=== PATIENT | female | born 1955 | race African-American/Black ===

== ENCOUNTER 2018-07-20 05:30 | Inpatient (IN) | payer MEDICARE, MEDICAID ==
[~2018-07-20] VITALS: Ht 165.1 cm; Wt 92.1 kg
[2018-07-20 06:58] LABS: BASOPHILS % 1.8 % (0.0-2.0); EOSINOPHILS % 2.3 % (0.0-5.0); HEMOGLOBIN. 9.5 g/dL (12.0-16.0); MEAN CORPUSCULAR HEMOGLOBIN 23.1 pg (28.0-32.0); MEAN CORPUSCULAR VOLUME 72.6 fL (81.0-99.0); MEAN PLATELET VOLUME 9.5 fl (7.4-10.4); MONOCYTES % 8.9 % (2.0-8.0); PLATELET 145 x1000/uL (130-400); RED BLOOD CELL COUNT 4.13 mill/uL (4.2-5.4); RED CELL DISTRIBUTION WIDTH 15.2 % (11.6-14.6)
[2018-07-20 06:58] LABS: CLARITY URINE CLEAR (CLEAR); COLOR URINE YELLOW (YELLOW); KETONES URINE NEGATIVE (NEGATIVE); LEUKOCYTE ESTERASE URINE TRACE (NEGATIVE); NITRITE URINE NEGATIVE (NEGATIVE); OCCULT BLOOD URINE NEGATIVE (NEGATIVE); PROTEIN URINE NEGATIVE (NEGATIVE); SPECIFIC GRAVITY URINE 1.016 (1.005-1.030); UROBILINOGEN URINE 0.2 E.U./dL (0.2-1.0)
[2018-07-20 07:03] LABS: PARTIAL THROMBOPLASTIN TIME 27.3 sec (23.4-31.0)
[2018-07-20 07:06] LABS: CHLORIDE 105 mEq/L (98-107)
[2018-07-20] MEDS ORDERED: NORMAL SALINE 0.9% 10 ML SYR ONE (07:42)
[2018-07-20] MEDS ORDERED: BACITRACIN 50,000 UNITS/VIAL ONE (07:43)
[2018-07-20] MEDS ORDERED: TRANEXAMIC ACID 1,000 MG in SODIUM CHLORIDE 0.9% 100 ML IV SCH (07:45)
[2018-07-20] MEDS ORDERED: BUPIVACAINE HCL/DEXTROSE/PF 0.75% 2ML AMP INJ ONE (07:49)
[2018-07-20] MEDS ORDERED: MORPHINE SULFATE/PF 1MG/ML 10ML AMP ONE (07:49)
[2018-07-20] MEDS ORDERED: FENTANYL CITRATE/PF 50MCG/ML 2ML VIAL ONE (07:52)
[2018-07-20] MEDS ORDERED: ROCURONIUM BROMIDE 10MG/ML VIAL 5ML IV ONE (07:52)
[2018-07-20] MEDS ORDERED: NEOSTIGMINE METHYLSULFATE 1MG/ML 10 ML VIAL ONE (07:53)
[2018-07-20] MEDS ORDERED: MIDAZOLAM HCL 2 MG/2 ML VIAL ONE (07:54)
[2018-07-20] MEDS ORDERED: PROPOFOL 200MG/20ML VIAL IV ONE (08:08)
[2018-07-20] MEDS ORDERED: HYDROMORPHONE HCL/PF 2MG/ML (OR) ONE (08:19)
[2018-07-20] MEDS ORDERED: HYDR25TA PO (08:30)
[2018-07-20] MEDS ORDERED: LABETALOL HCL 5MG/ML VIAL 20ML IV PRN (08:30)
[2018-07-20] MEDS ORDERED: URSO300C4 PO (08:30)
[2018-07-20] MEDS ORDERED: HYDROMORPHONE HCL/PF 2MG/ML CPJ IV PRN (08:30)
[2018-07-20] MEDS ORDERED: ONDANSETRON HCL 4MG/2ML INJ IV PRN ×3 (08:30→14:00)
[2018-07-20] MEDS ORDERED: HYDR-4135 PO (08:30)
[2018-07-20] MEDS ORDERED: ASPI-1159 PO (08:30)
[2018-07-20] MEDS ORDERED: DOCU-272 PO (08:30)
[2018-07-20] MEDS ORDERED: BENA40TA9 PO (08:30)
[2018-07-20] MEDS ORDERED: OXYC-105 PO (08:30)
[2018-07-20] MEDS ORDERED: FERR325T6 PO (08:30)
[2018-07-20] MEDS ORDERED: FERR220S12 PO (08:30)
[2018-07-20] MEDS ORDERED: METHYLENE BLUE 50 MG/10 ML AMP IV ONE (08:31)
[2018-07-20] MEDS ORDERED: EPINEPHRINE 1:1000 1 MG/ML AMP ONE (08:32)
[2018-07-20] MEDS ORDERED: BUPIVACAINE HCL 0.5% (5MG/ML) 50ML ONE (08:32)
[2018-07-20] MEDS ORDERED: GENTAMICIN SULF 40MG/ML 2ML VIAL ONE (09:48)
[2018-07-20] MEDS ORDERED: VANCOMYCIN HCL 500 MG/VIAL ONE (10:49)
[2018-07-20] MEDS ORDERED: TRANEXAMIC ACID 1,000 MG in SODIUM CHLORIDE 0.9% 100 ML IV ONE (11:00)
[2018-07-20] MEDS ORDERED: ZOLPIDEM TARTRATE 5MG TABLET PO PRN (13:00)
[2018-07-20] MEDS ORDERED: MORPHINE SULFATE 4 MG/ML CPJ (NOT FOR IM USE) IV PRN (13:00)
[2018-07-20] MEDS ORDERED: MORPHINE SULFATE 2 MG/ML CPJ (NOT FOR IM USE) IV PRN (13:00)
[2018-07-20] MEDS ORDERED: ACETAMINOPHEN 325MG TABLET PO PRN (13:00)
[2018-07-20] MEDS ORDERED: MAGNESIUM HYDROXIDE 400MG/5ML 30ML UDC PO PRN (13:00)
[2018-07-20] MEDS: MEPERIDINE HCL/PF 25MG/ML CPJ IV PRN ×3 (13:16→16:00)
[2018-07-20] MEDS ORDERED: NALOXONE INJ IV PRN (14:00)
[2018-07-20] MEDS ORDERED: HYDROMORPHONE PCA 10MG/50ML IV PRN (14:00)
[2018-07-20 18:00] VITALS: BP 145/91
[2018-07-20] MEDS ORDERED: CLONIDINE 0.1MG TABLET PO PRN (19:15)
[2018-07-20 20:00] VITALS: BP 174/85
[2018-07-20] MEDS: BENAZEPRIL 10MG TABLET PO SCH (20:12)
[2018-07-20] MEDS: DOCUSATE SODIUM 100MG CAPSULE PO SCH (20:13)
[2018-07-20] MEDS: HYDRALAZINE HCL 50MG TABLET PO SCH (20:13)
[2018-07-20] MEDS: FERROUS SULFATE 325MG TABLET PO SCH (20:13)
[2018-07-20] MEDS: HYDROCODONE/ACETAMINOPHEN 10/325MG TABLET PO PRN (20:13)
[2018-07-20] MEDS: CEFAZOLIN 2,000 MG in DEXT 5% WATER 100 ML IV SCH (21:36)
[2018-07-20] MEDS ORDERED: IBUPROFEN 400MG TABLET PO PRN (22:30)
[2018-07-21] VITALS: BP 131/78
[2018-07-21] MEDS: HYDROCODONE/ACETAMINOPHEN 10/325MG TABLET PO PRN ×5 (02:34→21:32)
[2018-07-21 04:00] VITALS: BP 119/70
[2018-07-21] MEDS: CEFAZOLIN 2,000 MG in DEXT 5% WATER 100 ML IV SCH (05:57)
[2018-07-21 06:58] LABS: BASOPHILS % 0.7 % (0.0-2.0); EOSINOPHILS % 0.3 % (0.0-5.0); HEMOGLOBIN. 8.6 g/dL (12.0-16.0); LYMPHOCYTES % 19.3 % (20.0-50.0); MEAN CORPUSCULAR HEMOGLOBIN 23.5 pg (28.0-32.0); MEAN CORPUSCULAR VOLUME 73.6 fL (81.0-99.0); MEAN PLATELET VOLUME 9.5 fl (7.4-10.4); MONOCYTES % 12.5 % (2.0-8.0); NEUTROPHILS % 67.2 % (40.0-76.0); PLATELET 119 x1000/uL (130-400); RED BLOOD CELL COUNT 3.67 mill/uL (4.2-5.4)
[2018-07-21 07:04] LABS: CHLORIDE 105 mEq/L (98-107)
[2018-07-21 08:00] VITALS: BP 143/88
[2018-07-21] MEDS: BENAZEPRIL 10MG TABLET PO SCH (08:47)
[2018-07-21] MEDS: ENOXAPARIN 30MG/0.3ML SYR SUBCUT SCH ×2 (08:48→17:22)
[2018-07-21] MEDS: DOCUSATE SODIUM 100MG CAPSULE PO SCH ×2 (08:48→17:21)
[2018-07-21] MEDS: FERROUS SULFATE 325MG TABLET PO SCH ×3 (08:48→17:21)
[2018-07-21] MEDS: HYDRALAZINE HCL 50MG TABLET PO SCH ×2 (08:49→21:03)
[2018-07-21] MEDS ORDERED: DIPHENHYDRAMINE 50MG/ML VIAL IV PRN (10:00)
[2018-07-21 12:00] VITALS: BP 146/86
[2018-07-21 16:00] VITALS: BP 135/83
[2018-07-21 20:00] VITALS: BP 154/85
[2018-07-22] VITALS: BP 155/79
[2018-07-22] MEDS: HYDROCODONE/ACETAMINOPHEN 10/325MG TABLET PO PRN ×4 (01:21→13:57)
[2018-07-22 04:00] VITALS: BP 140/83
[2018-07-22 07:35] LABS: BASOPHILS % 0.6 % (0.0-2.0); EOSINOPHILS % 0.2 % (0.0-5.0); HEMATOCRIT. 27.5 % (36.0-48.0); HEMOGLOBIN. 8.7 g/dL (12.0-16.0); LYMPHOCYTES % 14.9 % (20.0-50.0); MEAN CORPUSCULAR HEMOGLOBIN 23.2 pg (28.0-32.0); MEAN CORPUSCULAR VOLUME 73.2 fL (81.0-99.0); MEAN PLATELET VOLUME 10.2 fl (7.4-10.4); NEUTROPHILS % 73.3 % (40.0-76.0); PLATELET 122 x1000/uL (130-400); RED BLOOD CELL COUNT 3.76 mill/uL (4.2-5.4); RED CELL DISTRIBUTION WIDTH 14.9 % (11.6-14.6)
[2018-07-22 08:00] VITALS: BP 148/77
[2018-07-22 08:17] LABS: CHLORIDE 102 mEq/L (98-107)
[2018-07-22] MEDS: DOCUSATE SODIUM 100MG CAPSULE PO SCH ×2 (09:23→17:34)
[2018-07-22] MEDS: HYDRALAZINE HCL 50MG TABLET PO SCH (09:23)
[2018-07-22] MEDS: FERROUS SULFATE 325MG TABLET PO SCH ×2 (09:23→12:50)
[2018-07-22] MEDS: ENOXAPARIN 30MG/0.3ML SYR SUBCUT SCH ×2 (09:24→17:34)
[2018-07-22] MEDS: BENAZEPRIL 10MG TABLET PO SCH (09:24)
[2018-07-22 12:00] VITALS: BP_SYST 108; BP_SYST 135; BP_DIAS 53; BP_DIAS 85
[2018-07-22 14:40] VITALS: BP 135/85
[2018-07-22 16:00] VITALS: BP 127/76
== END 2018-07-22 18:53 | disposition home or self-care (01) | DRG 470 ==
LOC: ORIP 05:30 → 6EST 18:40
PROVIDERS: ADMIT Orthopaedic Surgery; ATTEND Orthopaedic Surgery
PROC: 0SRC0J9 Replacement of Right Knee Joint with Synthetic Substitute, Cemented, Open Approach (ICD-10-PCS; principal; 2018-07-20 07:30)
DX: M17.0 Bilateral primary osteoarthritis of knee (principal); D50.9 Iron deficiency anemia, unspecified; D69.6 Thrombocytopenia, unspecified; E66.01 Morbid (severe) obesity due to excess calories; I10 Essential (primary) hypertension; M65.9 Synovitis and tenosynovitis, unspecified; Z86.718 Personal history of other venous thrombosis and embolism; Z68.33 Body mass index [BMI] 33.0-33.9, adult
CPT/HCPCS: 36415; 73560; 80048; 82040; 86850; 86900; 88305; 88311; 93970; 97116; 97162; 97166; 97530; A4216; C1713; C1776; J0690; J1170; J1200; J1580; J1650; J2175; J2250; J2274; J2405; J2704; J2710; J3010; J3370; J3490; J7030; J7050; J7060; J7120; L1830; Q9968

== ENCOUNTER 2019-03-20 06:25 | Inpatient (IN) | payer MEDICARE, OTHER ==
[~2019-03-20] VITALS: Ht 157.5 cm; Wt 102.5 kg
[~2019-03-20 06:25] MED LIST: ASPI-1393 PO; BENA40TA9 PO; DOCU-272 PO; FERR220S12 PO; FERR325T6 PO; HYDR-4135 PO; HYDR25TA PO; OXYC-105 PO; URSO300C4 PO
[2019-03-20] MEDS ORDERED: LACTATED RINGERS 1,000 ML IV SCH (07:45)
[2019-03-20] MEDS ORDERED: METHYLENE BLUE 50 MG/10 ML AMP IV ONE (08:23)
[2019-03-20] MEDS ORDERED: EPINEPHRINE 1:1000 1 MG/ML AMP ONE (08:23)
[2019-03-20] MEDS ORDERED: BUPIVACAINE/EPINEPH/PF 0.25%/0.0005 10ML ONE (08:23)
[2019-03-20] MEDS ORDERED: MORPHINE SULFATE/PF 1MG/ML 10ML AMP ONE (08:23)
[2019-03-20] MEDS ORDERED: NORMAL SALINE 0.9% 10 ML SYR ONE (08:24)
[2019-03-20] MEDS ORDERED: BACITRACIN 50,000 UNITS/VIAL ONE (08:24)
[2019-03-20] MEDS ORDERED: GENTAMICIN SULF 40MG/ML 2ML VIAL ONE (08:27)
[2019-03-20] MEDS ORDERED: VANCOMYCIN HCL 500 MG/VIAL ONE (08:27)
[2019-03-20] MEDS ORDERED: TRANEXAMIC ACID 1,000 MG/10 ML IV ONE ×2 (09:15→11:15)
[2019-03-20 09:27] LABS: CHLORIDE 108 mEq/L (98-107)
[2019-03-20] MEDS ORDERED: TRANEXAMIC ACID 1,000 MG in SODIUM CHLORIDE 0.9% 100 ML IV NR ×2 (09:30→11:30)
[2019-03-20] MEDS ORDERED: BUPIVACAINE HCL 0.5% (5MG/ML) 50ML ONE (09:30)
[2019-03-20] MEDS ORDERED: OMEP40CA34 PO (09:30)
[2019-03-20] MEDS ORDERED: CLON0.1T PO (09:30)
[2019-03-20 09:31] LABS: PARTIAL THROMBOPLASTIN TIME 26.8 sec (23.4-31.0); PROTHROMBIN TIME 10.3 sec (9.6-11.0)
[2019-03-20 09:35] LABS: HEMATOCRIT. 29.1 % (36.0-48.0); HEMOGLOBIN. 9.2 g/dL (12.0-16.0); MEAN CORPUSCULAR HEMOGLOBIN 22.7 pg (28.0-32.0); MEAN PLATELET VOLUME 8.9 fl (7.4-10.4); PLATELET 150 x1000/uL (130-400); RED BLOOD CELL COUNT 4.04 mill/uL (4.2-5.4)
[2019-03-20 09:39] LABS: CLARITY URINE CLEAR (CLEAR); COLOR URINE YELLOW (YELLOW); KETONES URINE NEGATIVE (NEGATIVE); LEUKOCYTE ESTERASE URINE NEGATIVE (NEGATIVE); NITRITE URINE NEGATIVE (NEGATIVE); OCCULT BLOOD URINE NEGATIVE (NEGATIVE); PH URINE 8.5 (4.5-8.0); PROTEIN URINE NEGATIVE (NEGATIVE); SPECIFIC GRAVITY URINE 1.011 (1.005-1.030); UROBILINOGEN URINE 0.2 E.U./dL (0.2-1.0)
[2019-03-20] MEDS ORDERED: PROPOFOL 200MG/20ML VIAL IV ONE (09:52)
[2019-03-20] MEDS ORDERED: FENTANYL CITRATE/PF 50MCG/ML 5ML VIAL ONE (09:53)
[2019-03-20] MEDS ORDERED: ROCURONIUM BROMIDE 10MG/ML VIAL 5ML IV ONE ×2 (09:53→10:56)
[2019-03-20] MEDS ORDERED: LIDOCAINE HCL/PF 1% 10 MG/ML 5ML VIAL ONE (09:53)
[2019-03-20] MEDS ORDERED: CEFAZOLIN SODIUM 1000MG/VIAL ONE (09:53)
[2019-03-20] MEDS ORDERED: HYDRALAZINE 20MG/ML VIAL ONE (11:49)
[2019-03-20 11:51] LABS: PLATELET ESTIMATE NORMAL
[2019-03-20] MEDS ORDERED: HYDROMORPHONE HCL/PF 2MG/ML CPJ IV PRN (12:15)
[2019-03-20] MEDS ORDERED: ONDANSETRON HCL 4MG/2ML INJ IV PRN ×2 (12:15→15:00)
[2019-03-20] MEDS ORDERED: HYDRALAZINE 20MG/ML VIAL IV PRN (12:15)
[2019-03-20] MEDS ORDERED: ONDANSETRON HCL 4MG/2ML INJ ONE (12:23)
[2019-03-20] MEDS ORDERED: METOCLOPRAMIDE HCL 10MG/2ML VIAL ONE (12:23)
[2019-03-20] MEDS ORDERED: KETOROLAC 30MG/ML VIAL ONE (12:23)
[2019-03-20] MEDS ORDERED: BUPIVACAINE HCL/EPINEPHRINE 0.5%/0.0005 30ML ONE (13:00)
[2019-03-20] MEDS ORDERED: ROPIVACAINE HCL 10MG/ML 20 ML VIAL EPI ONE (13:17)
[2019-03-20] MEDS ORDERED: NEOSTIGMINE METHYLSULFATE 1MG/ML 10 ML VIAL ONE (13:26)
[2019-03-20] MEDS ORDERED: GLYCOPYRROLATE 0.2 MG/ML 2ML VIAL ONE (13:26)
[2019-03-20] MEDS ORDERED: ACETAMINOPHEN 325MG TABLET PO PRN (15:00)
[2019-03-20] MEDS ORDERED: MAGNESIUM HYDROXIDE 400MG/5ML 30ML UDC PO PRN (15:00)
[2019-03-20] MEDS ORDERED: NALOXONE INJ IV PRN (16:45)
[2019-03-20] MEDS ORDERED: ONDANSETRON INJ IV PRN (16:45)
[2019-03-20] MEDS ORDERED: HYDROMORPHONE PCA 10MG/50ML IV PRN (16:45)
[2019-03-20] MEDS ORDERED: DIPHENHYDRAMINE INJ IV PRN (16:45)
[2019-03-20 18:47] VITALS: BP 151/74
[2019-03-20] MEDS ORDERED: CEFAZOLIN 2,000 MG in DEXT 5% WATER 100 ML IV SCH (19:30)
[2019-03-20 20:00] VITALS: BP 117/69
[2019-03-20] MEDS ORDERED: ZOLPIDEM TARTRATE 5MG TABLET PO PRN (21:00)
[2019-03-20] MEDS: CEFAZOLIN 2,000 MG in DEXT 5% WATER 100 ML IV SCH (21:53)
[2019-03-21] VITALS: BP 149/83
[2019-03-21 04:00] VITALS: BP 143/76
[2019-03-21] MEDS: CEFAZOLIN 2,000 MG in DEXT 5% WATER 100 ML IV SCH (05:23)
[2019-03-21] MEDS: HYDROCODONE/ACETAMINOPHEN 10/325MG TABLET PO PRN ×5 (05:39→22:44)
[2019-03-21 06:32] LABS: CHLORIDE 108 mEq/L (98-107)
[2019-03-21 06:33] LABS: BASOPHILS % 0.7 % (0.0-2.0); EOSINOPHILS % 0.1 % (0.0-5.0); HEMATOCRIT. 25.4 % (36.0-48.0); HEMOGLOBIN. 8.1 g/dL (12.0-16.0); LYMPHOCYTES % 16.9 % (20.0-50.0); MEAN CORPUSCULAR HEMOGLOBIN 23.1 pg (28.0-32.0); MEAN CORPUSCULAR VOLUME 72.3 fL (81.0-99.0); MEAN PLATELET VOLUME 9.6 fl (7.4-10.4); MONOCYTES % 11.7 % (2.0-8.0); NEUTROPHILS % 70.6 % (40.0-76.0); PLATELET 127 x1000/uL (130-400); RED BLOOD CELL COUNT 3.52 mill/uL (4.2-5.4); RED CELL DISTRIBUTION WIDTH 15.4 % (11.6-14.6)
[2019-03-21] MEDS ORDERED: CLONIDINE 0.1MG TABLET PO PRN (07:00)
[2019-03-21 08:00] VITALS: BP 138/80
[2019-03-21] MEDS: DOCUSATE SODIUM 100MG CAPSULE PO SCH ×2 (08:54→17:23)
[2019-03-21] MEDS: BENAZEPRIL 10MG TABLET PO SCH (08:55)
[2019-03-21] MEDS: HYDROCHLOROTHIAZIDE 25MG TABLET PO SCH (08:55)
[2019-03-21] MEDS: FERROUS SULFATE 325MG TABLET PO SCH ×2 (08:56→17:23)
[2019-03-21] MEDS: OMEPRAZOLE 20MG CAPSULE EXTENDED RELEASE PO SCH ×2 (08:56→20:39)
[2019-03-21] MEDS: HYDRALAZINE HCL 50MG TABLET PO SCH ×2 (08:56→20:39)
[2019-03-21] MEDS: ENOXAPARIN 30MG/0.3ML SYR SUBCUT SCH ×2 (08:57→20:38)
[2019-03-21 12:00] VITALS: BP 148/86
[2019-03-21] MEDS: ASPIRIN 81MG TABLET PO SCH (14:45)
[2019-03-21] MEDS: CLONIDINE 0.1MG TABLET PO SCH (14:46)
[2019-03-21 16:00] VITALS: BP_SYST 158; BP_SYST 163; BP_DIAS 81; BP_DIAS 93
[2019-03-21 20:00] VITALS: BP 124/73
[2019-03-22] VITALS: BP 169/95
[2019-03-22] MEDS: HYDROCODONE/ACETAMINOPHEN 10/325MG TABLET PO PRN ×5 (03:12→20:38)
[2019-03-22 04:00] VITALS: BP 146/66
[2019-03-22 06:21] LABS: CHLORIDE 105 mEq/L (98-107)
[2019-03-22 06:24] LABS: HEMATOCRIT. 24.4 % (36.0-48.0); MEAN CORPUSCULAR HEMOGLOBIN 23.8 pg (28.0-32.0); MEAN CORPUSCULAR VOLUME 72.4 fL (81.0-99.0); MEAN PLATELET VOLUME 9.7 fl (7.4-10.4); PLATELET 112 x1000/uL (130-400); RED BLOOD CELL COUNT 3.38 mill/uL (4.2-5.4); RED CELL DISTRIBUTION WIDTH 15.6 % (11.6-14.6)
[2019-03-22] MEDS: OMEPRAZOLE 20MG CAPSULE EXTENDED RELEASE PO SCH ×2 (07:04→20:59)
[2019-03-22] MEDS: FERROUS SULFATE 325MG TABLET PO SCH ×2 (07:04→17:02)
[2019-03-22 08:00] VITALS: BP 143/92
[2019-03-22] MEDS: HYDROCHLOROTHIAZIDE 25MG TABLET PO SCH (08:19)
[2019-03-22] MEDS: DOCUSATE SODIUM 100MG CAPSULE PO SCH ×2 (08:20→17:02)
[2019-03-22] MEDS: ASPIRIN 81MG TABLET PO SCH (08:20)
[2019-03-22] MEDS: CLONIDINE 0.1MG TABLET PO SCH (08:20)
[2019-03-22] MEDS: HYDRALAZINE HCL 50MG TABLET PO SCH ×2 (08:20→20:59)
[2019-03-22] MEDS: ENOXAPARIN 30MG/0.3ML SYR SUBCUT SCH ×2 (08:22→21:00)
[2019-03-22] MEDS: BENAZEPRIL 10MG TABLET PO SCH (08:32)
[2019-03-22 10:04] LABS: PLATELET ESTIMATE DECREASED
[2019-03-22 11:53] VITALS: BP 125/76
[2019-03-22 16:00] VITALS: BP 142/73
[2019-03-22 20:00] VITALS: BP 151/84
[2019-03-23] MEDS: HYDROCODONE/ACETAMINOPHEN 10/325MG TABLET PO PRN ×3 (01:26→09:50)
[2019-03-23] MEDS: OMEPRAZOLE 20MG CAPSULE EXTENDED RELEASE PO SCH (06:25)
[2019-03-23 06:54] LABS: HEMATOCRIT. 24.2 % (36.0-48.0); HEMOGLOBIN. 7.9 g/dL (12.0-16.0); MEAN CORPUSCULAR HEMOGLOBIN 23.3 pg (28.0-32.0); MEAN CORPUSCULAR VOLUME 71.7 fL (81.0-99.0); MEAN PLATELET VOLUME 9.9 fl (7.4-10.4); PLATELET 108 x1000/uL (130-400); RED BLOOD CELL COUNT 3.38 mill/uL (4.2-5.4); RED CELL DISTRIBUTION WIDTH 15.3 % (11.6-14.6)
[2019-03-23] MEDS: FERROUS SULFATE 325MG TABLET PO SCH (07:50)
[2019-03-23 08:00] VITALS: BP 171/102
[2019-03-23] MEDS: ASPIRIN 81MG TABLET PO SCH (09:46)
[2019-03-23] MEDS: CLONIDINE 0.1MG TABLET PO SCH (09:48)
[2019-03-23] MEDS: HYDRALAZINE HCL 50MG TABLET PO SCH (09:48)
[2019-03-23] MEDS: HYDROCHLOROTHIAZIDE 25MG TABLET PO SCH (09:48)
[2019-03-23] MEDS: DOCUSATE SODIUM 100MG CAPSULE PO SCH (09:48)
[2019-03-23] MEDS: ENOXAPARIN 30MG/0.3ML SYR SUBCUT SCH (09:49)
[2019-03-23] MEDS: BENAZEPRIL 10MG TABLET PO SCH (09:49)
[2019-03-23 10:44] LABS: PLATELET ESTIMATE SLIGHTLY DECREASED
[2019-03-23 11:36] VITALS: BP 171/102
== END 2019-03-23 12:00 | disposition home health service (06) | DRG 470 ==
LOC: OR 06:25 → 6EST 19:02
PROVIDERS: ADMIT Orthopaedic Surgery; ATTEND Orthopaedic Surgery
PROC: 0SRD0J9 Replacement of Left Knee Joint with Synthetic Substitute, Cemented, Open Approach (ICD-10-PCS; principal; 2019-03-20)
PROC: 0QUC07Z Supplement Left Lower Femur with Autologous Tissue Substitute, Open Approach (ICD-10-PCS; 2019-03-20)
PROC: 0QUC0KZ Supplement Left Lower Femur with Nonautologous Tissue Substitute, Open Approach (ICD-10-PCS; 2019-03-20)
DX: M17.12 Unilateral primary osteoarthritis, left knee (principal); Z68.41 Body mass index [BMI] 40.0-44.9, adult; D50.9 Iron deficiency anemia, unspecified; E66.01 Morbid (severe) obesity due to excess calories; G89.29 Other chronic pain; I10 Essential (primary) hypertension; M65.9 Synovitis and tenosynovitis, unspecified; M85.662 Other cyst of bone, left lower leg; M21.952 Unspecified acquired deformity of left thigh; D69.6 Thrombocytopenia, unspecified; Z96.651 Presence of right artificial knee joint; Z86.718 Personal history of other venous thrombosis and embolism; Z98.51 Tubal ligation status; Z98.84 Bariatric surgery status
CPT/HCPCS: 36415; 73560; 80048; 86850; 86900; 88305; 88311; 93971; 97116; 97163; 97166; 97530; 97535; C1713; C1776; J0171; J0360; J0690; J1170; J1580; J1650; J1885; J2274; J2405; J2704; J2710; J2765; J2795; J3010; J3370; J3490; J7050; J7060; L1830; Q9968

== ENCOUNTER 2022-04-15 10:23 | Inpatient (IN) | payer MEDICARE, MEDICAID ==
[~2022-04-15] VITALS: Ht 165.1 cm; Wt 117.9 kg
[~2022-04-15 10:23] MED LIST changes: -ASPI-1393 PO; +ASPI-1497 PO; -BENA40TA9 PO; +BENA40TA91 PO; +CLON0.1T PO; +DOCU-268 PO; -DOCU-272 PO; -FERR220S12 PO; +OMEP40CA20 PO
[2022-04-15] MEDS ORDERED: DILTIAZEM HCL 60MG TABLET PO ONE (10:45)
[2022-04-15] MEDS ORDERED: DILTIAZEM HCL 5MG/ML 5ML VIAL IV ONE (10:45)
[2022-04-15 11:41] LABS: BASOPHILS % 0.7 % (0.0-2.0); EOSINOPHILS % 0.9 % (0.0-5.0); HEMATOCRIT. 35.6 % (36.0-48.0); HEMOGLOBIN. 11.1 g/dL (12.0-16.0); LYMPHOCYTES % 35.1 % (20.0-50.0); MEAN CORPUSCULAR VOLUME 73.8 fL (81.0-99.0); MEAN PLATELET VOLUME 9.2 fl (7.4-10.4); MONOCYTES % 6.1 % (2.0-8.0); NEUTROPHILS % 57.2 % (40.0-76.0); PLATELET 172 x1000/uL (130-400); RED BLOOD CELL COUNT 4.83 mill/uL (4.2-5.4); RED CELL DISTRIBUTION WIDTH 16.4 % (11.6-14.6)
[2022-04-15 11:56] LABS: CHLORIDE 104 mEq/L (98-107)
[2022-04-15] MEDS ORDERED: ENOXAPARIN 80MG/0.8ML SYR SUBCUT ONE (12:30)
[2022-04-15] MEDS ORDERED: IOHEXOL-350 100 ML BOTTLE ONE (15:03)
[2022-04-15] MEDS ORDERED: HYDRALAZINE 20MG/ML VIAL IV PRN (15:30)
[2022-04-15] MEDS ORDERED: ACETAMINOPHEN 325MG TABLET PO PRN (15:30)
[2022-04-15] MEDS ORDERED: DIPHENHYDRAMINE 50MG/ML VIAL IV PRN (15:30)
[2022-04-15] MEDS ORDERED: CLONIDINE 0.1MG TABLET PO PRN (15:30)
[2022-04-15] MEDS ORDERED: ONDANSETRON HCL 4MG/2ML INJ IV PRN (15:30)
[2022-04-15] MEDS ORDERED: ZOLPIDEM TARTRATE 5MG TABLET PO PRN (15:30)
[2022-04-15 16:15] VITALS: BP 132/96
[2022-04-15] MEDS: ENOXAPARIN 100MG/ML SYR SUBCUT SCH (18:18)
[2022-04-15] MEDS: HYDRALAZINE HCL 25MG TABLET PO SCH ×2 (18:18→21:39)
[2022-04-15 20:00] VITALS: BP 131/87
[2022-04-15] MEDS: SODIUM CHLORIDE 0.9% INJ 3ML FLUSH IVF SCH (21:40)
[2022-04-16] VITALS: BP 139/87
[2022-04-16 04:00] VITALS: BP 132/95
[2022-04-16] MEDS: SODIUM CHLORIDE 0.9% INJ 3ML FLUSH IVF SCH ×3 (06:06→22:00)
[2022-04-16] MEDS: ENOXAPARIN 100MG/ML SYR SUBCUT SCH (06:06)
[2022-04-16] MEDS: HYDRALAZINE HCL 25MG TABLET PO SCH ×3 (06:07→22:04)
[2022-04-16 08:00] VITALS: BP 142/89
[2022-04-16] MEDS: ACETAMINOPHEN 325MG TABLET PO PRN ×2 (08:56→18:08)
[2022-04-16] MEDS: BENAZEPRIL 10MG TABLET PO SCH (08:56)
[2022-04-16 11:14] LABS: T4 FREE 1.2 ng/dL (0.76-1.46)
[2022-04-16 12:00] VITALS: BP 141/90
[2022-04-16] MEDS: HYDROCODONE/ACETAMINOPHEN 10/325MG TABLET PO PRN (12:16)
[2022-04-16] MEDS ORDERED: DIGOXIN 500MCG/2ML AMP IV SCH (12:45)
[2022-04-16] MEDS: METOPROLOL TARTRATE 50MG TABLET PO SCH ×2 (14:11→22:04)
[2022-04-16 16:00] VITALS: BP 117/80
[2022-04-16] MEDS: APIXABAN 5 MG TABLET PO SCH (18:08)
[2022-04-16 20:00] VITALS: BP 130/90
[2022-04-17] VITALS: BP 142/72
[2022-04-17] MEDS: HYDROCODONE/ACETAMINOPHEN 10/325MG TABLET PO PRN ×2 (00:17→14:05)
[2022-04-17 04:00] VITALS: BP 104/67
[2022-04-17] MEDS: HYDRALAZINE HCL 25MG TABLET PO SCH ×3 (06:00→21:20)
[2022-04-17] MEDS: SODIUM CHLORIDE 0.9% INJ 3ML FLUSH IVF SCH ×3 (06:10→22:00)
[2022-04-17 08:00] VITALS: BP 158/99
[2022-04-17] MEDS: ACETAMINOPHEN 325MG TABLET PO PRN (09:15)
[2022-04-17] MEDS: APIXABAN 5 MG TABLET PO SCH ×2 (09:15→16:13)
[2022-04-17] MEDS: BENAZEPRIL 10MG TABLET PO SCH (09:16)
[2022-04-17] MEDS: METOPROLOL TARTRATE 50MG TABLET PO SCH ×2 (09:17→21:20)
[2022-04-17 11:53] VITALS: BP 147/95
[2022-04-17 16:00] VITALS: BP 144/87
[2022-04-17 20:00] VITALS: BP 130/85
[2022-04-17] MEDS ORDERED: NALOXONE HCL 0.4MG/ML VIAL IV PRN (20:30)
[2022-04-18] VITALS: BP 136/92
[2022-04-18 03:46] VITALS: BP 139/85
[2022-04-18] MEDS: HYDRALAZINE HCL 25MG TABLET PO SCH ×2 (05:56→14:00)
[2022-04-18] MEDS: SODIUM CHLORIDE 0.9% INJ 3ML FLUSH IVF SCH ×2 (06:00→14:00)
[2022-04-18] MEDS ORDERED: OMEPRAZOLE 20MG CAPSULE EXTENDED RELEASE PO SCH (07:20)
[2022-04-18 07:56] VITALS: BP 129/83
[2022-04-18] MEDS: BENAZEPRIL 10MG TABLET PO SCH (08:48)
[2022-04-18] MEDS: APIXABAN 5 MG TABLET PO SCH (08:48)
[2022-04-18] MEDS: METOPROLOL TARTRATE 50MG TABLET PO SCH (08:49)
[2022-04-18] MEDS: HYDROCODONE/ACETAMINOPHEN 10/325MG TABLET PO PRN (10:58)
[2022-04-18 12:00] VITALS: BP 139/89
[2022-04-18 14:36] VITALS: BP 139/89
== END 2022-04-18 18:09 | disposition home or self-care (01) | DRG 309 ==
LOC: ER 10:23 → 6WST 13:40 → ENRESERV 15:19 → 6WST 16:41
PROVIDERS: ADMIT Internal Medicine; ATTEND Internal Medicine
DX: I48.92 Unspecified atrial flutter (principal); I50.22 Chronic systolic (congestive) heart failure; Z68.41 Body mass index [BMI] 40.0-44.9, adult; E66.9 Obesity, unspecified; M17.0 Bilateral primary osteoarthritis of knee; I48.91 Unspecified atrial fibrillation; I11.0 Hypertensive heart disease with heart failure; Z79.899 Other long term (current) drug therapy; Z82.49 Family history of ischemic heart disease and other diseases of the circulatory system; Z83.3 Family history of diabetes mellitus; Z96.653 Presence of artificial knee joint, bilateral; Z86.718 Personal history of other venous thrombosis and embolism
CPT/HCPCS: 36415; 71045; 71275; 80053; 83735; 83880; 84439; 84443; 84484; 85025; 93005; 93306; 93970; 99291; J0360; J1160; J1650; J3490; Q9967